=== PATIENT | female | born 1940 | race Caucasian/White ===

== ENCOUNTER 2016-09-11 12:06 | Emergency (ER) | payer MEDICARE, OTHER ==
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
--- NOTE | 2016-09-12 13:28 | RADIOLOGY REPORT ---
Two views of the chest demonstrate the heart and vessels to be unremarkable. The lung chavez are clear. No infiltrate, fluid or pneumothorax is seen. IMPRESSION: Unremarkable two views of the chest. MTDD
--- NOTE | 2016-09-12 13:29 | RADIOLOGY REPORT ---
Five views of the left lower leg demonstrate no displaced fracture or dislocation. Limited views of the joints are unremarkable. IMPRESSION: No displaced injury is identified. If clinically indicated, further evaluation and/or follow-up may be of benefit. JACLYN
--- NOTE | 2016-09-12 13:31 | RADIOLOGY REPORT ---
Initial views of the right hand at 1506 hours demonstrates dorsal dislocation of the interphalangeal joint of the thumb. There is impacted intraarticular fracture involving the volar portion of the distal phalanx. No other abnormality is identified. Additional films at 1532 hours demonstrates interval reduction. IMPRESSION: Fracture dislocation of the distal phalanx of the right thumb with subsequent reduction. ROSID
== END 2016-09-11 17:42 | disposition home or self-care (01) ==
LOC: ER 12:06
DX: S61.411A Laceration without foreign body of right hand, initial encounter (principal); S62.521A Displaced fracture of distal phalanx of right thumb, initial encounter for closed fracture; S20.219A Contusion of unspecified front wall of thorax, initial encounter; S80.12XA Contusion of left lower leg, initial encounter; V43.62XA Car passenger injured in collision with other type car in traffic accident, initial encounter; Y92.413 State road as the place of occurrence of the external cause; I10 Essential (primary) hypertension; Z79.899 Other long term (current) drug therapy
CPT/HCPCS: 12002; 71020; 99284; A0425; A0429